=== PATIENT | male | born 1945 | race Asian ===

== ENCOUNTER 2019-04-20 19:47 | Inpatient (IN) | payer MEDICARE, MEDICAID ==
[~2019-04-20] VITALS: Ht 157.5 cm; Wt 48.4 kg
[2019-04-20] MEDS ORDERED: ADV100 IH (20:16)
[2019-04-20] MEDS ORDERED: ALBU8HFA IH (20:16)
[2019-04-20] MEDS ORDERED: 0.9% SODIUM CHLORIDE 5 ML NEB SOLUTION NEB ONE ×3 (20:29→23:40)
[2019-04-20] MEDS ORDERED: IPRATROPIUM BROMIDE 0.5 MG/2.5 ML NEB SOLUTION NEB ONE ×3 (20:30→23:30)
[2019-04-20] MEDS ORDERED: LEVALBUTEROL HCL 1.25 MG/0.5 ML NEB SOLUTION NEB ONE (20:30)
[2019-04-20] MEDS ORDERED: ACETAMINOPHEN 325 MG TABLET PO ONE (20:30)
[2019-04-20 20:40] LABS: BASOPHILS % (AUTO) 0.6 % (0.0-2.0); EOSINOPHILS % (AUTO) 3.3 % (1.0-6.0); HEMATOCRIT 39.3 % (41-53); HEMOGLOBIN 13.4 g/dL (13.5-17.5); LYMPHOCYTES # (AUTO) 3.1 K/uL (1.0-4.8); LYMPHOCYTES % (AUTO) 20.2 % (22.0-44.0); MEAN CORPUSCULAR HEMOGLOBIN 30.5 pg (26.0-34.0); MEAN CORPUSCULAR HGB CONC 33.9 G/dL (31.0-37.0); MEAN CORPUSCULAR VOLUME 90 fL (80-100); MONOCYTES # (AUTO) 1.6 K/uL (0.1-1.0); MONOCYTES % (AUTO) 10.5 % (2.0-9.0); NEUTROPHILS % (AUTO) 65.4 % (40.0-70.0); PLATELET COUNT (AUTO) 254 K/uL (150-450); RED BLOOD CELL COUNT(AUTO) 4.38 MIL/uL (4.50-5.90); RED CELL DISTRIBUTION WIDTH 13.7 % (11.5-14.5)
[2019-04-20 20:51] LABS: ANION GAP 9 mmol/L (8-16); CALCIUM, TOTAL 8.3 mg/dL (8.8-10.5); CARBON DIOXIDE 30 mmol/L (22-29); CHLORIDE 106 mmol/L (98-107); CREATININE 1.11 mg/dL (0.60-1.30); GLUCOSE,RANDOM 156 mg/dL (70-110); POTASSIUM 3.4 mmol/L (3.5-5.1); SODIUM SERUM 145 mmol/L (136-145); UREA NITROGEN, BLOOD 22 mg/dL (7-18)
[2019-04-20 20:52] LABS: GLOMERULAR FILTR. RATE CALC > 60 mL/min (>60)
[2019-04-20 21:05] LABS: B-TYPE NATRIURETIC PEPTIDE 108 pg/mL (0-100)
[2019-04-20 21:15] LABS: ALANINE AMINOTRANSFERASE 34 U/L (12-78); ALKALINE PHOSPHATASE 129 U/L (46-116); ASPARTATE AMINOTRANSFERASE 26 U/L (15-37); BILIRUBIN,TOTAL 0.3 mg/dL (0.1-1.0); CREATINE KINASE, TOTAL ONLY 230 U/L (39-308); TOTAL PROTEIN, SERUM 7.7 g/dL (6.4-8.2)
[2019-04-20] MEDS ORDERED: MethylPREDNISolone SOD SUCC 125 MG/2 ML VIAL IVP ONE (21:15)
[2019-04-20] MEDS ORDERED: AZITHROMYCIN 500 MG/NS 250 ML IV ONE ×2 (21:15→21:16)
[2019-04-20] MEDS ORDERED: CefTRIAXone 1 GM/DEXTROSE 50 ML IV ONE ×2 (21:15→21:16)
[2019-04-20] MEDS ORDERED: MethylPREDNISolone SOD SUCC 125 MG/2 ML VIAL ONE (21:16)
[2019-04-20 21:19] LABS: INFLUENZA TYPE A NEGATIVE FOR TYPE A (NEGATIVE); INFLUENZA TYPE B NEGATIVE FOR TYPE B (NEGATIVE)
[2019-04-20 21:26] LABS: LACTIC ACID 2.4 mmol/L (0.4-2.0)
[2019-04-20] MEDS ORDERED: SODIUM CHLORIDE 0.9% 1,000 ML IV ONE (21:45)
[2019-04-20] MEDS ORDERED: SODIUM CHLORIDE 0.9% 500 ML IV ONE (22:00)
[2019-04-20] MEDS ORDERED: DOXYCYCLINE HYCLATE 100 MG in DEXTROSE 5%-WATER 100 ML IV ONE (22:00)
[2019-04-20] MEDS ORDERED: ALBUTEROL SULFATE 5 MG/ML 20 ML NEB SOLN [BULK] NEB ONE ×2 (22:00→23:30)
[2019-04-20] MEDS ORDERED: SODIUM CHLORIDE 0.9% 20 ML ONE (23:08)
[2019-04-20] MEDS ORDERED: SUCCINYLCHOLINE CHLORIDE 20 MG/ML 10 ML VIAL ONE (23:09)
[2019-04-20] MEDS ORDERED: RAPID SEQUENCE KIT [RSI] 1 EACH KIT ONE (23:09)
[2019-04-20] MEDS ORDERED: KETAMINE HCL 50 MG/ML 10 ML VIAL IVP ONE (23:15)
[2019-04-20] MEDS ORDERED: MAGNESIUM SULFATE 2 GM/WATER 50 ML IV ONE (23:30)
[2019-04-20 23:33] LABS: HCO3,VENOUS BLOOD GAS 20.4 (21.0-28.0); PCO2,VENOUS BLOOD GAS 58 (40-45); SOURCE, BLOOD GAS VENOUS; TEMPERATURE, FAHRENHEIT, BG 100.7 FAHREN (96.0-98.6); TOTAL HEMOGLOBIN,VENOUS BGAS 12.6 (12.0-18.0)
[2019-04-20 23:36] LABS: SITE, BLOOD GAS RIGHT AC
[2019-04-20] MEDS ORDERED: EPINEPHrine 1:1,000 [1 MG/ML] AMP IM ONE (23:45)
[2019-04-20] MEDS ORDERED: VANCOMYCIN HCL 1 GM/D5% WATER 200 ML IV ONE (23:45)
[2019-04-21] VITALS (7 sets, daily range): BP systolic 98–132; BP diastolic 50–71
[2019-04-21] MEDS ORDERED: ACETAMINOPHEN 325 MG TABLET PO PRN ×2 (01:00→19:00)
[2019-04-21] MEDS ORDERED: 0.9% SODIUM CHLORIDE 10 ML SYRINGE IVP PRN (01:00)
[2019-04-21] MEDS ORDERED: SODIUM CHLORIDE 0.9% 500 ML IV ONE (01:00)
[2019-04-21 01:39] LABS: BASE EXCESS,VENOUS BLOOD GAS -6.3 (-3.3-1.2); PCO2,VENOUS BLOOD GAS 48 (40-45); PH,VENOUS BLOOD GAS 7.253 (7.360-7.410); SOURCE, BLOOD GAS VENOUS; TEMPERATURE, FAHRENHEIT, BG 98.1 FAHREN (96.0-98.6)
[2019-04-21 01:41] LABS: SITE, BLOOD GAS L FOREARM
[2019-04-21] MEDS ORDERED: PNEUMOCOCCAL VACCINE POLYVALENT 0.5 ML VIAL [PPSV23] IM ONE (06:00)
[2019-04-21] MEDS ORDERED: BISACODYL 10 MG RECTAL RECTAL SUPPOSITORY PR PRN (19:00)
[2019-04-21] MEDS ORDERED: ONDANSETRON HCL 4 MG/2 ML VIAL IVP PRN (19:00)
[2019-04-21] MEDS ORDERED: ZOLPIDEM TARTRATE 5 MG TABLET PO PRN (19:00)
[2019-04-21] MEDS ORDERED: MAGNESIUM HYDROXIDE SUSPENSION 30 ML UDCUP PO PRN (19:00)
[2019-04-21] MEDS: ALBUTEROL SULFATE 2.5 MG/0.5 ML NEB SOLUTION NEB SCH ×2 (19:00→22:02)
[2019-04-21] MEDS: IPRATROPIUM BROMIDE 0.5 MG/2.5 ML NEB SOLUTION NEB SCH ×2 (19:00→22:01)
[2019-04-21] MEDS ORDERED: ALBUTEROL SULFATE 2.5 MG/0.5 ML NEB SOLUTION NEB PRN (19:00)
[2019-04-21] MEDS ORDERED: IPRATROPIUM BROMIDE 0.5 MG/2.5 ML NEB SOLUTION NEB PRN (19:00)
[2019-04-21] MEDS ORDERED: MORPHINE SULFATE 2 MG/ML SYRINGE IVP PRN (19:00)
[2019-04-21] MEDS ORDERED: HYDROCODONE/ACETAMINOPHEN 5-325 MG TABLET PO PRN (19:00)
[2019-04-21] MEDS: DOCUSATE SODIUM 100 MG CAPSULE PO SCH (21:00)
[2019-04-21] MEDS ORDERED: SODIUM CHLORIDE 0.9% 250 ML IV ONE (21:00)
[2019-04-21] MEDS: CefTRIAXone SODIUM 2 GM in DEXTROSE 5%-WATER 50 ML IV SCH (21:19)
[2019-04-21] MEDS: AZITHROMYCIN 500 MG/NS 250 ML IV SCH (21:46)
[2019-04-21] MEDS: MethylPREDNISolone SOD SUCC 125 MG/2 ML VIAL IVP SCH (23:46)
[2019-04-22] VITALS (7 sets, daily range): BP systolic 125–146; BP diastolic 61–92
[2019-04-22] MEDS: IPRATROPIUM BROMIDE 0.5 MG/2.5 ML NEB SOLUTION NEB SCH ×6 (02:52→23:00)
[2019-04-22] MEDS: ALBUTEROL SULFATE 2.5 MG/0.5 ML NEB SOLUTION NEB SCH ×6 (02:52→23:00)
[2019-04-22] MEDS: MethylPREDNISolone SOD SUCC 125 MG/2 ML VIAL IVP SCH ×4 (06:00→20:36)
[2019-04-22] MEDS: HEPARIN SODIUM,PORCINE 5,000 UNITS/ML VIAL SQ SCH ×4 (08:00→23:20)
[2019-04-22] MEDS: DOCUSATE SODIUM 100 MG CAPSULE PO SCH ×2 (08:52→21:00)
[2019-04-22] MEDS: CefTRIAXone SODIUM 2 GM in DEXTROSE 5%-WATER 50 ML IV SCH (20:27)
[2019-04-22] MEDS: AZITHROMYCIN 500 MG/NS 250 ML IV SCH (21:00)
[2019-04-23 02:59] VITALS: BP 155/93
[2019-04-23] MEDS: IPRATROPIUM BROMIDE 0.5 MG/2.5 ML NEB SOLUTION NEB SCH ×6 (03:00→23:00)
[2019-04-23] MEDS: ALBUTEROL SULFATE 2.5 MG/0.5 ML NEB SOLUTION NEB SCH ×6 (03:00→23:00)
[2019-04-23] MEDS: MethylPREDNISolone SOD SUCC 125 MG/2 ML VIAL IVP SCH ×5 (06:00→23:08)
[2019-04-23 07:24] VITALS: BP 148/90
[2019-04-23] MEDS: HEPARIN SODIUM,PORCINE 5,000 UNITS/ML VIAL SQ SCH ×3 (08:00→23:08)
[2019-04-23] MEDS: DOCUSATE SODIUM 100 MG CAPSULE PO SCH ×2 (08:45→23:08)
[2019-04-23 09:06] LABS: BASOPHILS % (AUTO) 0.9 % (0.0-2.0); HEMOGLOBIN 13.2 g/dL (13.5-17.5); LYMPHOCYTES # (AUTO) 2.9 K/uL (1.0-4.8); LYMPHOCYTES % (AUTO) 32.7 % (22.0-44.0); MEAN CORPUSCULAR HEMOGLOBIN 30.5 pg (26.0-34.0); MEAN CORPUSCULAR HGB CONC 33.8 G/dL (31.0-37.0); MEAN CORPUSCULAR VOLUME 90 fL (80-100); MONOCYTES # (AUTO) 0.9 K/uL (0.1-1.0); MONOCYTES % (AUTO) 9.9 % (2.0-9.0); NEUTROPHILS # (AUTO) 4.5 K/uL (1.8-7.7); NEUTROPHILS % (AUTO) 50.5 % (40.0-70.0); PLATELET COUNT (AUTO) 266 K/uL (150-450); RED BLOOD CELL COUNT(AUTO) 4.33 MIL/uL (4.50-5.90); RED CELL DISTRIBUTION WIDTH 13.7 % (11.5-14.5)
[2019-04-23 09:22] LABS: ALANINE AMINOTRANSFERASE 55 U/L (12-78); ALBUMIN 3.2 g/dL (3.4-5.0); ALKALINE PHOSPHATASE 103 U/L (46-116); ANION GAP 6 mmol/L (8-16); ASPARTATE AMINOTRANSFERASE 41 U/L (15-37); BILIRUBIN,TOTAL 0.3 mg/dL (0.1-1.0); CALCIUM, TOTAL 8.6 mg/dL (8.8-10.5); CARBON DIOXIDE 32 mmol/L (22-29); CHLORIDE 107 mmol/L (98-107); CREATININE 1.01 mg/dL (0.60-1.30); GLOMERULAR FILTR. RATE CALC > 60 mL/min (>60); GLUCOSE,RANDOM 200 mg/dL (70-110); POTASSIUM 3.4 mmol/L (3.5-5.1); SODIUM SERUM 145 mmol/L (136-145); TOTAL PROTEIN, SERUM 6.9 g/dL (6.4-8.2); UREA NITROGEN, BLOOD 14 mg/dL (7-18)
[2019-04-23 11:25] VITALS: BP 140/84
[2019-04-23 15:15] VITALS: BP 152/94
[2019-04-23 19:34] VITALS: BP 146/79
[2019-04-23] MEDS: CefTRIAXone SODIUM 2 GM in DEXTROSE 5%-WATER 50 ML IV SCH (19:49)
[2019-04-23] MEDS: AZITHROMYCIN 500 MG/NS 250 ML IV SCH (20:08)
[2019-04-23 23:05] VITALS: BP 143/85
[2019-04-24] MEDS: IPRATROPIUM BROMIDE 0.5 MG/2.5 ML NEB SOLUTION NEB SCH ×4 (03:06→15:00)
[2019-04-24] MEDS: ALBUTEROL SULFATE 2.5 MG/0.5 ML NEB SOLUTION NEB SCH ×4 (03:06→15:00)
[2019-04-24 04:52] VITALS: BP 131/71
[2019-04-24] MEDS: MethylPREDNISolone SOD SUCC 125 MG/2 ML VIAL IVP SCH ×2 (05:59→12:37)
[2019-04-24] MEDS: HEPARIN SODIUM,PORCINE 5,000 UNITS/ML VIAL SQ SCH ×2 (08:41→16:00)
[2019-04-24] MEDS: DOCUSATE SODIUM 100 MG CAPSULE PO SCH (08:42)
[2019-04-24 11:49] VITALS: BP 137/70
[2019-04-24] MEDS ORDERED: PredniSONE 20 MG TABLET PO ONE (14:30)
[2019-04-24] MEDS ORDERED: POTASSIUM CHLORIDE 20 MEQ ER TABLET PO ONE (14:45)
[2019-04-24 15:40] VITALS: BP 142/70
== END 2019-04-24 17:00 | DRG 871 ==
LOC: EMS 19:48 → ICU 04-21 01:09 → 4E 04-21 18:45
PROVIDERS: ADMIT Hospitalist; ATTEND Hospitalist
PROC: 5A09357 Assistance with Respiratory Ventilation, Less than 24 Consecutive Hours, Continuous Positive Airway Pressure (ICD-10-PCS; principal; 2019-04-21)
PROC: 5A09357 Assistance with Respiratory Ventilation, Less than 24 Consecutive Hours, Continuous Positive Airway Pressure (ICD-10-PCS; 2019-04-21)
DX: A41.9 Sepsis, unspecified organism (principal); J96.90 Respiratory failure, unspecified, unspecified whether with hypoxia or hypercapnia; J18.9 Pneumonia, unspecified organism; J44.1 Chronic obstructive pulmonary disease with (acute) exacerbation; J44.0 Chronic obstructive pulmonary disease with (acute) lower respiratory infection; E87.6 Hypokalemia; F17.200 Nicotine dependence, unspecified, uncomplicated; R65.20 Severe sepsis without septic shock; Z59.0 Homelessness; Z28.21 Immunization not carried out because of patient refusal; Z79.899 Other long term (current) drug therapy
CPT/HCPCS: 82805; 83605; 87040; 87081; 87804; 93005; 94640; 94644; 94660; 96365; 96375; 99291; G0378; J0171; J0330; J0456; J0696; J1644; J2930; J3370; J3475; J3490; J7030; J7040; J7050; J7060

== ENCOUNTER 2019-05-07 14:59 | Inpatient (IN) | payer MEDICARE, MEDICAID ==
[~2019-05-07] VITALS: Ht 167.6 cm; Wt 45.5 kg
[~2019-05-07 14:59] MED LIST: ADV100 IH; ALBU8HFA IH
[2019-05-07] MEDS ORDERED: LEVO750T21 PO (15:32)
[2019-05-07] MEDS ORDERED: [UNRECOGNIZED DRUG - CODE] PO (15:32)
[2019-05-07] MEDS ORDERED: PRED20 PO (15:32)
[2019-05-07] MEDS ORDERED: 0.9% SODIUM CHLORIDE 10 ML SYRINGE IVP PRN ×2 (15:45→19:00)
[2019-05-07] MEDS ORDERED: SODIUM CHLORIDE 0.9% 1,000 ML IV ONE ×3 (15:45→21:00)
[2019-05-07 16:43] LABS: BASOPHILS % (AUTO) 0.4 % (0.0-2.0); EOSINOPHILS % (AUTO) 0 % (1.0-6.0); HEMATOCRIT 44.2 % (41-53); HEMOGLOBIN 14.7 g/dL (13.5-17.5); LYMPHOCYTES # (AUTO) 0.8 K/uL (1.0-4.8); LYMPHOCYTES % (AUTO) 3.8 % (22.0-44.0); MEAN CORPUSCULAR HEMOGLOBIN 30.4 pg (26.0-34.0); MEAN CORPUSCULAR HGB CONC 33.3 G/dL (31.0-37.0); MEAN CORPUSCULAR VOLUME 91 fL (80-100); MONOCYTES # (AUTO) 2.7 K/uL (0.1-1.0); MONOCYTES % (AUTO) 12.8 % (2.0-9.0); NEUTROPHILS # (AUTO) 17.3 K/uL (1.8-7.7); PLATELET COUNT (AUTO) 270 K/uL (150-450); RED BLOOD CELL COUNT(AUTO) 4.84 MIL/uL (4.50-5.90); RED CELL DISTRIBUTION WIDTH 14.4 % (11.5-14.5)
[2019-05-07 16:57] LABS: ANION GAP 7 mmol/L (8-16); CALCIUM, TOTAL 8.8 mg/dL (8.8-10.5); CARBON DIOXIDE 31 mmol/L (22-29); CHLORIDE 104 mmol/L (98-107); CREATININE 1.03 mg/dL (0.60-1.30); GLUCOSE,RANDOM 250 mg/dL (70-110); POTASSIUM 4.1 mmol/L (3.5-5.1); SODIUM SERUM 142 mmol/L (136-145); UREA NITROGEN, BLOOD 21 mg/dL (7-18)
[2019-05-07 16:59] LABS: GLOMERULAR FILTR. RATE CALC > 60 mL/min (>60); PROTHROMBIN TIME 10.3 SEC (9.4-11.6)
[2019-05-07 17:03] LABS: ALANINE AMINOTRANSFERASE 72 U/L (12-78); ALBUMIN 3.7 g/dL (3.4-5.0); ALKALINE PHOSPHATASE 129 U/L (46-116); ASPARTATE AMINOTRANSFERASE 63 U/L (15-37); BILIRUBIN,TOTAL 0.3 mg/dL (0.1-1.0); CREATINE KINASE, TOTAL ONLY 25 U/L (39-308); TOTAL PROTEIN, SERUM 7.4 g/dL (6.4-8.2)
[2019-05-07 17:04] LABS: AMMONIA 17 umol/L (11-32); LACTIC ACID 1.6 mmol/L (0.4-2.0)
[2019-05-07 17:05] LABS: TROPONIN I < 0.02 ng/mL (0.00-0.05)
[2019-05-07 17:06] LABS: B-TYPE NATRIURETIC PEPTIDE 92 pg/mL (0-100)
[2019-05-07 18:16] LABS: AMPHET/METH SCREEN,URINE NEGATIVE (NEGATIVE); BARBITURATE SCREEN, URINE NEGATIVE (NEGATIVE); BENZODIAZEPINES SCREEN,URINE NEGATIVE (NEGATIVE); CANNABINOID SCREEN,URINE NEGATIVE (NEGATIVE); COCAINE SCREEN,URINE NEGATIVE (NEGATIVE); METHADONE SCREEN, URINE NEGATIVE (NEGATIVE); OPIATE SCREEN,URINE NEGATIVE (NEGATIVE)
[2019-05-07 18:17] LABS: PHENCYCLIDINE SCREEN,URINE NEGATIVE (NEGATIVE)
[2019-05-07 18:21] LABS: APPEARANCE,URINE CLEAR (CLEAR); BILIRUBIN,URINE NEGATIVE (NEGATIVE); GLUCOSE, URINE (UA) >=1000 mg/dL (NEGATIVE); KETONES,URINE NEGATIVE (NEGATIVE); LEUKOCYTE ESTERASE ,URINE NEGATIVE (NEGATIVE); NITRATE,URINE NEGATIVE (NEGATIVE); OCCULT BLOOD,URINE NEGATIVE (NEGATIVE); PH,URINE 6.5 (5.0-8.0); PROTEIN,URINE NEGATIVE (NEGATIVE)
[2019-05-07 18:29] LABS: INFLUENZA TYPE A NEGATIVE FOR TYPE A (NEGATIVE); INFLUENZA TYPE B NEGATIVE FOR TYPE B (NEGATIVE)
[2019-05-07] MEDS ORDERED: PIPERACILLIN/TAZO 3.375 GM/D5W 50 ML IV ONE (18:30)
[2019-05-07] MEDS ORDERED: LEVOFLOXACIN 500 MG/D5% WATER 100 ML IV ONE (18:30)
[2019-05-07 18:49] LABS: BACTERIA,URINE Few /HPF (None Seen); RBC,URINE None Seen /HPF (0-2); SQUAMOUS EPITHELIAL CELL,UR Rare /LPF (None Seen); WBC,URINE 0-2 /HPF (0-5)
[2019-05-07 18:50] LABS: AMORPHOUS SEDIMENT,UR Few /LPF (None Seen)
[2019-05-07] MEDS ORDERED: ACETAMINOPHEN 325 MG TABLET PO PRN ×2 (19:00→21:00)
[2019-05-07] MEDS ORDERED: ONDANSETRON HCL 4 MG/2 ML VIAL IVP PRN ×2 (19:00→21:00)
[2019-05-07] MEDS: GuaiFENesin SR 600 MG ER TABLET PO SCH (21:00)
[2019-05-07] MEDS ORDERED: BISACODYL 10 MG RECTAL RECTAL SUPPOSITORY PR PRN (21:00)
[2019-05-07] MEDS: DOCUSATE SODIUM 100 MG CAPSULE PO SCH (21:00)
[2019-05-07] MEDS ORDERED: MORPHINE SULFATE 2 MG/ML SYRINGE IVP PRN (21:00)
[2019-05-07] MEDS ORDERED: HYDROCODONE/ACETAMINOPHEN 5-325 MG TABLET PO PRN (21:00)
[2019-05-07] MEDS ORDERED: ZOLPIDEM TARTRATE 5 MG TABLET PO PRN (21:00)
[2019-05-07] MEDS ORDERED: *CLINICAL-LEVOFLOXACIN IVPB DOSING CLINICAL ONE (21:00)
[2019-05-07] MEDS ORDERED: MAGNESIUM HYDROXIDE SUSPENSION 30 ML UDCUP PO PRN (21:00)
[2019-05-07] MEDS ORDERED: CefTRIAXone 1 GM/DEXTROSE 50 ML IV SCH (21:00)
[2019-05-07] MEDS: BENZONATATE 100 MG CAPSULE PO SCH (21:00)
[2019-05-07 21:39] VITALS: BP 130/56
[2019-05-07 23:49] VITALS: BP 134/72
[2019-05-08] MEDS: MethylPREDNISolone SOD SUCC 125 MG/2 ML VIAL IVP SCH ×5 (00:22→23:09)
[2019-05-08] MEDS: HEPARIN SODIUM,PORCINE 5,000 UNITS/ML VIAL SQ SCH ×4 (00:22→23:09)
[2019-05-08] MEDS: ALBUTEROL SULFATE 2.5 MG/0.5 ML NEB SOLUTION NEB SCH ×4 (02:00→20:22)
[2019-05-08] MEDS: IPRATROPIUM BROMIDE 0.5 MG/2.5 ML NEB SOLUTION NEB SCH ×4 (02:00→20:22)
[2019-05-08 05:08] VITALS: BP 122/64
[2019-05-08 06:26] LABS: BASOPHILS % (AUTO) 0.5 % (0.0-2.0); EOSINOPHILS % (AUTO) 0 % (1.0-6.0); HEMATOCRIT 41.9 % (41-53); HEMOGLOBIN 13.7 g/dL (13.5-17.5); LYMPHOCYTES # (AUTO) 0.7 K/uL (1.0-4.8); LYMPHOCYTES % (AUTO) 5.2 % (22.0-44.0); MEAN CORPUSCULAR HEMOGLOBIN 30.1 pg (26.0-34.0); MEAN CORPUSCULAR HGB CONC 32.8 G/dL (31.0-37.0); MEAN CORPUSCULAR VOLUME 92 fL (80-100); MONOCYTES # (AUTO) 1.7 K/uL (0.1-1.0); MONOCYTES % (AUTO) 12.3 % (2.0-9.0); NEUTROPHILS # (AUTO) 11.3 K/uL (1.8-7.7); PLATELET COUNT (AUTO) 223 K/uL (150-450); RED BLOOD CELL COUNT(AUTO) 4.56 MIL/uL (4.50-5.90); RED CELL DISTRIBUTION WIDTH 14.5 % (11.5-14.5)
[2019-05-08 06:55] LABS: ALANINE AMINOTRANSFERASE 57 U/L (12-78); ALKALINE PHOSPHATASE 97 U/L (46-116); ANION GAP 9 mmol/L (8-16); ASPARTATE AMINOTRANSFERASE 56 U/L (15-37); BILIRUBIN,TOTAL 0.4 mg/dL (0.1-1.0); CALCIUM, TOTAL 7.6 mg/dL (8.8-10.5); CARBON DIOXIDE 28 mmol/L (22-29); CHLORIDE 108 mmol/L (98-107); CREATININE 1.14 mg/dL (0.60-1.30); GLUCOSE,RANDOM 209 mg/dL (70-110); POTASSIUM 3.9 mmol/L (3.5-5.1); SODIUM SERUM 145 mmol/L (136-145); TOTAL PROTEIN, SERUM 6.6 g/dL (6.4-8.2); UREA NITROGEN, BLOOD 15 mg/dL (7-18)
[2019-05-08 06:56] LABS: GLOMERULAR FILTR. RATE CALC > 60 mL/min (>60)
[2019-05-08] MEDS: DOCUSATE SODIUM 100 MG CAPSULE PO SCH ×2 (07:45→20:58)
[2019-05-08] MEDS: BENZONATATE 100 MG CAPSULE PO SCH ×3 (07:45→20:59)
[2019-05-08] MEDS: GuaiFENesin SR 600 MG ER TABLET PO SCH ×2 (07:45→20:58)
[2019-05-08] MEDS: PANTOPRAZOLE SODIUM 40 MG DR TABLET PO SCH (07:45)
[2019-05-08 08:06] VITALS: BP 119/63
[2019-05-08 11:12] VITALS: BP 116/83
[2019-05-08 15:22] LABS: ABG BASE EXCESS 2.3 mmol/L (-2.0-3.0); ABG CARBOXYHEMOGLOBIN 1.2 % (0.0-1.5); ABG HCO3 26.1 mmol/L (22.0-26.0); ABG METHEMOGLOBIN 0.3 % (0.0-1.5); ABG OXYGEN CONTENT 18.6 mL/dL (15.0-23.0); ABG OXYGEN SATURATION 91.9 % (95.0-98.0); ABG OXYHEMOGLOBIN 90.5 % (94.0-100.0); ABG PCO2 43 mmHg (35-45); ABG PH 7.417 (7.35-7.450); ABG TOTAL HEMOGLOBIN 14.6 G/dL (12.0-18.0); PO2, ARTERIAL BG 60.2 mmHg (75.0-83.0); SOURCE, BLOOD GAS ARTERIAL
[2019-05-08 15:25] LABS: O2 DEVICE,BLOOD GAS CANNULA (ROOM AIR); SITE, BLOOD GAS LFT RADIAL
[2019-05-08 16:04] VITALS: BP 129/62
[2019-05-08 16:09] LABS: PHOSPHORUS 2.8 mg/dL (2.5-4.9)
[2019-05-08] MEDS ORDERED: SODIUM CHLORIDE 0.9% 250 ML IV ONE (16:15)
[2019-05-08] MEDS: WATER IV SCH ×2 (16:17→23:10)
[2019-05-08] MEDS: DEXTROSE 5% IV SCH ×2 (16:17→23:10)
[2019-05-08] MEDS: ACYCLOVIR IV SCH ×2 (16:17→23:10)
[2019-05-08] MEDS: CefTRIAXone SODIUM 2 GM in DEXTROSE 5%-WATER 50 ML IV SCH (17:49)
[2019-05-08] MEDS ORDERED: LEVOFLOXACIN 250 MG/D5% WATER 50 ML IV SCH (18:00)
[2019-05-08] MEDS ORDERED: VANCOMYCIN HCL 1 GM/D5% WATER 200 ML IV ONE (18:00)
[2019-05-08] MEDS ORDERED: VANCOMYCIN HCL 1.5 GM in DEXTROSE 5%-WATER 250 ML IV ONE (18:00)
[2019-05-08 19:53] VITALS: BP 128/58
[2019-05-09 00:10] VITALS: BP 123/66
[2019-05-09] MEDS: IPRATROPIUM BROMIDE 0.5 MG/2.5 ML NEB SOLUTION NEB SCH ×4 (02:18→20:05)
[2019-05-09] MEDS: ALBUTEROL SULFATE 2.5 MG/0.5 ML NEB SOLUTION NEB SCH ×4 (02:18→20:05)
[2019-05-09] MEDS: CefTRIAXone SODIUM 2 GM in DEXTROSE 5%-WATER 50 ML IV SCH ×2 (05:26→18:17)
[2019-05-09] MEDS: MethylPREDNISolone SOD SUCC 125 MG/2 ML VIAL IVP SCH (05:26)
[2019-05-09 05:48] VITALS: BP 124/66
[2019-05-09 06:29] LABS: ANION GAP 7 mmol/L (8-16); CALCIUM, TOTAL 7.9 mg/dL (8.8-10.5); CARBON DIOXIDE 31 mmol/L (22-29); CHLORIDE 108 mmol/L (98-107); CREATININE 1.17 mg/dL (0.60-1.30); GLUCOSE,RANDOM 252 mg/dL (70-110); POTASSIUM 3.6 mmol/L (3.5-5.1); SODIUM SERUM 146 mmol/L (136-145); UREA NITROGEN, BLOOD 14 mg/dL (7-18)
[2019-05-09 06:32] LABS: GLOMERULAR FILTR. RATE CALC > 60 mL/min (>60)
[2019-05-09 07:43] VITALS: BP 132/78
[2019-05-09] MEDS: ACYCLOVIR IV SCH ×2 (08:41→16:23)
[2019-05-09] MEDS: WATER IV SCH ×2 (08:41→16:23)
[2019-05-09] MEDS: DEXTROSE 5% IV SCH ×2 (08:41→16:23)
[2019-05-09] MEDS: GuaiFENesin SR 600 MG ER TABLET PO SCH ×2 (08:45→21:00)
[2019-05-09] MEDS: DOCUSATE SODIUM 100 MG CAPSULE PO SCH ×2 (08:45→21:00)
[2019-05-09] MEDS: PANTOPRAZOLE SODIUM 40 MG DR TABLET PO SCH (08:45)
[2019-05-09] MEDS: BENZONATATE 100 MG CAPSULE PO SCH ×3 (08:46→21:00)
[2019-05-09] MEDS: VANCOMYCIN HCL 500 MG in DEXTROSE 5%-WATER 100 ML IV SCH ×2 (10:47→20:49)
[2019-05-09] MEDS: HEPARIN SODIUM,PORCINE 5,000 UNITS/ML VIAL SQ SCH ×2 (10:47→20:49)
[2019-05-09 11:04] VITALS: BP 132/68
[2019-05-09 16:12] LABS: GLUCOSE, CSF 135 mg/dL (50-80); TOTAL PROTEIN, CSF 41 mg/dL (15-45)
[2019-05-09 16:24] VITALS: BP 128/70
[2019-05-09 17:14] LABS: CSF TUBE NUMBER 1
[2019-05-09 17:15] LABS: COLOR,CSF PINK (COLORLESS)
[2019-05-09 17:16] LABS: LYMPHOCYTES1,CSF 15 %; MONOCYTES1,CSF 0 %; NEUTROPHILS1,CSF 85 %
[2019-05-09 17:18] LABS: APPEARANCE,CSF CLOUDY (CLEAR)
[2019-05-09 17:20] LABS: APPEARANCE2,CSF CLEAR (CLEAR); COLOR2,CSF COLORLESS (COLORLESS); CSF 2ND TUBE NUMBER 4
[2019-05-09 17:21] LABS: LYMPHOCYTES2,CSF 5 %; MONOCYTES2,CSF 0 %; NEUTROPHILS2,CSF 90 %; OTHER CELLS,CSF 2ND 0
[2019-05-09 20:42] VITALS: BP 142/60
[2019-05-10] VITALS (7 sets, daily range): BP systolic 120–153; BP diastolic 65–80
[2019-05-10] MEDS: DEXTROSE 5% IV SCH ×4 (00:25→23:34)
[2019-05-10] MEDS: ACYCLOVIR IV SCH ×4 (00:25→23:34)
[2019-05-10] MEDS: WATER IV SCH ×4 (00:25→23:34)
[2019-05-10] MEDS: IPRATROPIUM BROMIDE 0.5 MG/2.5 ML NEB SOLUTION NEB SCH ×4 (02:26→20:09)
[2019-05-10] MEDS: ALBUTEROL SULFATE 2.5 MG/0.5 ML NEB SOLUTION NEB SCH ×4 (02:26→20:09)
[2019-05-10] MEDS: CefTRIAXone SODIUM 2 GM in DEXTROSE 5%-WATER 50 ML IV SCH (05:48)
[2019-05-10 06:51] LABS: BASOPHILS % (AUTO) 0.3 % (0.0-2.0); EOSINOPHILS % (AUTO) 0.1 % (1.0-6.0); HEMATOCRIT 37.4 % (41-53); HEMOGLOBIN 12.4 g/dL (13.5-17.5); LYMPHOCYTES # (AUTO) 1.2 K/uL (1.0-4.8); LYMPHOCYTES % (AUTO) 10.8 % (22.0-44.0); MEAN CORPUSCULAR HEMOGLOBIN 30.4 pg (26.0-34.0); MEAN CORPUSCULAR HGB CONC 33.1 G/dL (31.0-37.0); MEAN CORPUSCULAR VOLUME 92 fL (80-100); MONOCYTES # (AUTO) 1.5 K/uL (0.1-1.0); MONOCYTES % (AUTO) 13.4 % (2.0-9.0); NEUTROPHILS # (AUTO) 8.4 K/uL (1.8-7.7); NEUTROPHILS % (AUTO) 75.4 % (40.0-70.0); PLATELET COUNT (AUTO) 179 K/uL (150-450); RED BLOOD CELL COUNT(AUTO) 4.08 MIL/uL (4.50-5.90); RED CELL DISTRIBUTION WIDTH 13.9 % (11.5-14.5)
[2019-05-10 07:06] LABS: ANION GAP 8 mmol/L (8-16); CALCIUM, TOTAL 7.6 mg/dL (8.8-10.5); CARBON DIOXIDE 30 mmol/L (22-29); CHLORIDE 107 mmol/L (98-107); CREATININE 1.02 mg/dL (0.60-1.30); GLUCOSE,RANDOM 161 mg/dL (70-110); POTASSIUM 3.1 mmol/L (3.5-5.1); SODIUM SERUM 145 mmol/L (136-145); UREA NITROGEN, BLOOD 13 mg/dL (7-18); VANCOMYCIN,RANDOM 8.3 mcg/mL (25.0-50.0)
[2019-05-10 07:07] LABS: GLOMERULAR FILTR. RATE CALC > 60 mL/min (>60)
[2019-05-10] MEDS: VANCOMYCIN HCL 500 MG in DEXTROSE 5%-WATER 100 ML IV SCH (08:25)
[2019-05-10] MEDS: HEPARIN SODIUM,PORCINE 5,000 UNITS/ML VIAL SQ SCH ×2 (08:25→20:22)
[2019-05-10] MEDS ORDERED: SODIUM CHLORIDE 0.9% 1,000 ML ONE (08:31)
[2019-05-10] MEDS: BENZONATATE 100 MG CAPSULE PO SCH ×3 (08:39→23:25)
[2019-05-10] MEDS: GuaiFENesin SR 600 MG ER TABLET PO SCH ×2 (08:39→20:21)
[2019-05-10] MEDS: PANTOPRAZOLE SODIUM 40 MG DR TABLET PO SCH (08:39)
[2019-05-10] MEDS: DOCUSATE SODIUM 100 MG CAPSULE PO SCH ×2 (08:39→21:00)
[2019-05-10] MEDS ORDERED: POTASSIUM CHLORIDE 20 MEQ ER TABLET PO PRN (10:30)
[2019-05-10] MEDS: POTASSIUM CHL 10 MEQ/WATER 50 ML IV PRN ×3 (12:14→14:40)
[2019-05-10] MEDS ORDERED: VANCOMYCIN HCL 500 MG in DEXTROSE 5%-WATER 100 ML IV SCH (16:00)
[2019-05-10] MEDS: AMPICILLIN SODIUM/SULBACTAM NA 3 GM in SODIUM CHLORIDE 0.9% 100 ML IV SCH ×2 (18:21→23:25)
[2019-05-11] MEDS: ALBUTEROL SULFATE 2.5 MG/0.5 ML NEB SOLUTION NEB SCH ×5 (01:54→22:04)
[2019-05-11] MEDS: IPRATROPIUM BROMIDE 0.5 MG/2.5 ML NEB SOLUTION NEB SCH ×5 (01:54→22:04)
[2019-05-11 04:13] VITALS: BP 142/78
[2019-05-11] MEDS: AMPICILLIN SODIUM/SULBACTAM NA 3 GM in SODIUM CHLORIDE 0.9% 100 ML IV SCH ×3 (04:59→18:48)
[2019-05-11 07:25] VITALS: BP 133/81
[2019-05-11] MEDS: DOCUSATE SODIUM 100 MG CAPSULE PO SCH ×2 (08:35→21:03)
[2019-05-11] MEDS: HEPARIN SODIUM,PORCINE 5,000 UNITS/ML VIAL SQ SCH ×2 (08:35→21:00)
[2019-05-11] MEDS: PANTOPRAZOLE SODIUM 40 MG DR TABLET PO SCH (08:35)
[2019-05-11] MEDS: BENZONATATE 100 MG CAPSULE PO SCH ×3 (08:35→21:03)
[2019-05-11] MEDS: ACYCLOVIR IV SCH ×2 (08:38→17:13)
[2019-05-11] MEDS: WATER IV SCH ×2 (08:38→17:13)
[2019-05-11] MEDS: DEXTROSE 5% IV SCH ×2 (08:38→17:13)
[2019-05-11 08:41] LABS: ANION GAP 8 mmol/L (8-16); CALCIUM, TOTAL 8.1 mg/dL (8.8-10.5); CARBON DIOXIDE 29 mmol/L (22-29); CHLORIDE 105 mmol/L (98-107); CREATININE 0.76 mg/dL (0.60-1.30); GLUCOSE,RANDOM 171 mg/dL (70-110); POTASSIUM 3.3 mmol/L (3.5-5.1); SODIUM SERUM 142 mmol/L (136-145); UREA NITROGEN, BLOOD 9 mg/dL (7-18)
[2019-05-11] MEDS: GuaiFENesin SR 600 MG ER TABLET PO SCH ×2 (08:43→21:03)
[2019-05-11 08:44] LABS: GLOMERULAR FILTR. RATE CALC > 60 mL/min (>60)
[2019-05-11 10:52] VITALS: BP 118/76
[2019-05-11 16:09] VITALS: BP 145/85
[2019-05-11 19:55] VITALS: BP 125/71
[2019-05-11 23:28] VITALS: BP 129/74
[2019-05-12 04:24] VITALS: BP 127/75
[2019-05-12] MEDS: AMPICILLIN SODIUM/SULBACTAM NA 3 GM in SODIUM CHLORIDE 0.9% 100 ML IV SCH ×4 (06:00→12:00)
[2019-05-12 07:40] VITALS: BP 154/84
[2019-05-12] MEDS: GuaiFENesin SR 600 MG ER TABLET PO SCH ×2 (07:55→20:24)
[2019-05-12] MEDS: BENZONATATE 100 MG CAPSULE PO SCH ×3 (07:55→20:24)
[2019-05-12] MEDS: DOCUSATE SODIUM 100 MG CAPSULE PO SCH ×2 (07:56→20:24)
[2019-05-12] MEDS: PANTOPRAZOLE SODIUM 40 MG DR TABLET PO SCH (07:56)
[2019-05-12] MEDS: WATER IV SCH ×4 (08:00→16:00)
[2019-05-12] MEDS: ACYCLOVIR IV SCH ×4 (08:00→16:00)
[2019-05-12] MEDS: DEXTROSE 5% IV SCH ×4 (08:00→16:00)
[2019-05-12] MEDS: HEPARIN SODIUM,PORCINE 5,000 UNITS/ML VIAL SQ SCH ×2 (08:38→21:00)
[2019-05-12] MEDS: IPRATROPIUM BROMIDE 0.5 MG/2.5 ML NEB SOLUTION NEB SCH ×3 (08:53→20:00)
[2019-05-12] MEDS: ALBUTEROL SULFATE 2.5 MG/0.5 ML NEB SOLUTION NEB SCH ×3 (08:53→20:00)
[2019-05-12 11:45] VITALS: BP 122/71
[2019-05-12 15:25] VITALS: BP 133/87
[2019-05-12 19:06] VITALS: BP 132/80
[2019-05-12] MEDS: AMOX TR/POT CLAV 875 MG/125 MG TABLET PO SCH (20:25)
[2019-05-12 23:07] VITALS: BP 137/85
[2019-05-13] MEDS: ALBUTEROL SULFATE 2.5 MG/0.5 ML NEB SOLUTION NEB SCH ×4 (02:00→20:45)
[2019-05-13] MEDS: IPRATROPIUM BROMIDE 0.5 MG/2.5 ML NEB SOLUTION NEB SCH ×5 (02:00→20:42)
[2019-05-13 06:05] VITALS: BP 115/73
[2019-05-13 07:18] VITALS: BP 127/77
[2019-05-13] MEDS: BENZONATATE 100 MG CAPSULE PO SCH ×3 (09:11→21:00)
[2019-05-13] MEDS: GuaiFENesin SR 600 MG ER TABLET PO SCH ×2 (09:11→21:00)
[2019-05-13] MEDS: DOCUSATE SODIUM 100 MG CAPSULE PO SCH ×2 (09:11→21:00)
[2019-05-13] MEDS: HEPARIN SODIUM,PORCINE 5,000 UNITS/ML VIAL SQ SCH ×2 (09:11→21:00)
[2019-05-13] MEDS: AMOX TR/POT CLAV 875 MG/125 MG TABLET PO SCH ×2 (09:11→21:00)
[2019-05-13] MEDS: PANTOPRAZOLE SODIUM 40 MG DR TABLET PO SCH (09:11)
[2019-05-13] MEDS: BUDESONIDE 0.5 MG/2 ML NEB SOLUTION NEB SCH ×2 (09:18→20:42)
[2019-05-13] MEDS: WATER IV SCH ×4 (09:27→16:02)
[2019-05-13] MEDS: DEXTROSE 5% IV SCH ×4 (09:27→16:02)
[2019-05-13] MEDS: ACYCLOVIR IV SCH ×4 (09:27→16:02)
[2019-05-13 11:09] LABS: ANION GAP 6 mmol/L (8-16); CARBON DIOXIDE 31 mmol/L (22-29); CHLORIDE 103 mmol/L (98-107); GLUCOSE,RANDOM 224 mg/dL (70-110); POTASSIUM 3.6 mmol/L (3.5-5.1); SODIUM SERUM 140 mmol/L (136-145)
[2019-05-13 11:10] LABS: CALCIUM, TOTAL 8.6 mg/dL (8.8-10.5); UREA NITROGEN, BLOOD 10 mg/dL (7-18)
[2019-05-13 11:13] VITALS: BP 117/71
[2019-05-13 11:13] LABS: GLOMERULAR FILTR. RATE CALC > 60 mL/min (>60)
[2019-05-13 15:38] VITALS: BP 117/69
[2019-05-13] MEDS: IPRATROPIUM BROMIDE 0.5 MG/2.5 ML NEB SOLUTION NEB PRN (16:22)
[2019-05-13] MEDS: ALBUTEROL SULFATE 2.5 MG/0.5 ML NEB SOLUTION NEB PRN (16:22)
[2019-05-13 20:05] VITALS: BP 151/81
[2019-05-14 00:18] VITALS: BP 146/86
[2019-05-14] MEDS: WATER IV SCH ×2 (01:13→12:05)
[2019-05-14] MEDS: ACYCLOVIR IV SCH ×2 (01:13→12:05)
[2019-05-14] MEDS: DEXTROSE 5% IV SCH ×2 (01:13→12:05)
[2019-05-14] MEDS: ALBUTEROL SULFATE 2.5 MG/0.5 ML NEB SOLUTION NEB SCH ×5 (02:00→20:00)
[2019-05-14] MEDS: IPRATROPIUM BROMIDE 0.5 MG/2.5 ML NEB SOLUTION NEB SCH ×5 (02:00→20:00)
[2019-05-14 05:08] VITALS: BP 128/68
[2019-05-14 07:32] VITALS: BP 147/87
[2019-05-14] MEDS: BUDESONIDE 0.5 MG/2 ML NEB SOLUTION NEB SCH ×3 (08:04→21:00)
[2019-05-14] MEDS: AMOX TR/POT CLAV 875 MG/125 MG TABLET PO SCH ×2 (09:00→21:00)
[2019-05-14] MEDS: HEPARIN SODIUM,PORCINE 5,000 UNITS/ML VIAL SQ SCH ×2 (09:00→21:00)
[2019-05-14] MEDS: BENZONATATE 100 MG CAPSULE PO SCH ×3 (09:00→21:00)
[2019-05-14] MEDS: DOCUSATE SODIUM 100 MG CAPSULE PO SCH ×2 (09:00→21:00)
[2019-05-14] MEDS: PANTOPRAZOLE SODIUM 40 MG DR TABLET PO SCH (09:00)
[2019-05-14] MEDS: GuaiFENesin SR 600 MG ER TABLET PO SCH ×2 (09:00→21:00)
[2019-05-14 11:09] VITALS: BP 124/79
[2019-05-14] MEDS ORDERED: HALOPERIDOL LACTATE 5 MG/ML VIAL IM PRN (14:45)
[2019-05-14 14:48] VITALS: BP 139/81
[2019-05-14] MEDS: ALBUTEROL SULFATE 2.5 MG/0.5 ML NEB SOLUTION NEB PRN (17:41)
[2019-05-14] MEDS: IPRATROPIUM BROMIDE 0.5 MG/2.5 ML NEB SOLUTION NEB PRN (17:41)
[2019-05-15 00:45] VITALS: BP 138/83
[2019-05-15] MEDS: IPRATROPIUM BROMIDE 0.5 MG/2.5 ML NEB SOLUTION NEB SCH ×3 (02:08→13:36)
[2019-05-15] MEDS: ALBUTEROL SULFATE 2.5 MG/0.5 ML NEB SOLUTION NEB SCH ×3 (02:08→13:36)
[2019-05-15 07:55] VITALS: BP 133/99
[2019-05-15] MEDS: BUDESONIDE 0.5 MG/2 ML NEB SOLUTION NEB SCH (08:03)
[2019-05-15] MEDS: DOCUSATE SODIUM 100 MG CAPSULE PO SCH (09:00)
[2019-05-15] MEDS: AMOX TR/POT CLAV 875 MG/125 MG TABLET PO SCH (09:00)
[2019-05-15] MEDS: BENZONATATE 100 MG CAPSULE PO SCH ×2 (09:00→16:00)
[2019-05-15] MEDS: HEPARIN SODIUM,PORCINE 5,000 UNITS/ML VIAL SQ SCH (09:00)
[2019-05-15] MEDS: GuaiFENesin SR 600 MG ER TABLET PO SCH (09:00)
[2019-05-15] MEDS: PANTOPRAZOLE SODIUM 40 MG DR TABLET PO SCH (09:00)
[2019-05-15 11:46] VITALS: BP 131/87
[2019-05-15] MEDS ORDERED: AMOX1TAB16 PO (14:13)
[2019-05-15] MEDS ORDERED: BENZ-51 PO (14:14)
[2019-05-15] MEDS ORDERED: BUDE0.5A3 NEB (14:15)
[2019-05-15] MEDS ORDERED: DOCU-275 PO (14:16)
[2019-05-15] MEDS ORDERED: GUAI600T35 PO (14:17)
[2019-05-15] MEDS ORDERED: HEPA500018 SQ (14:18)
[2019-05-15] MEDS ORDERED: PANT40TA25 PO (14:19)
[2019-05-15] MEDS ORDERED: IPRNEB IH (14:19)
[2019-05-15] MEDS ORDERED: ACET-3207 PO (14:21)
[2019-05-15] MEDS ORDERED: A20IH1 IH (14:23)
[2019-05-15] MEDS ORDERED: BISA10SU11 PR (14:24)
[2019-05-15] MEDS ORDERED: HALO5I IM (14:25)
[2019-05-15] MEDS ORDERED: HYDR-4061 PO (14:26)
[2019-05-15] MEDS ORDERED: MOM30 PO (14:27)
[2019-05-15 15:56] VITALS: BP 126/71
== END 2019-05-15 17:15 | DRG 871 ==
LOC: EMS 14:59 → 5S 19:15
PROVIDERS: ADMIT Internal Medicine; ATTEND Internal Medicine
PROC: 009U3ZX Drainage of Spinal Canal, Percutaneous Approach, Diagnostic (ICD-10-PCS; principal; 2019-05-09)
DX: A41.9 Sepsis, unspecified organism (principal); E43 Unspecified severe protein-calorie malnutrition; G92 Toxic encephalopathy; J69.0 Pneumonitis due to inhalation of food and vomit; J44.1 Chronic obstructive pulmonary disease with (acute) exacerbation; J98.11 Atelectasis; J44.0 Chronic obstructive pulmonary disease with (acute) lower respiratory infection; Z68.1 Body mass index [BMI] 19.9 or less, adult; E86.0 Dehydration; E11.65 Type 2 diabetes mellitus with hyperglycemia; F03.90 Unspecified dementia, unspecified severity, without behavioral disturbance, psychotic disturbance, mood disturbance, and anxiety; R65.20 Severe sepsis without septic shock; Z53.20 Procedure and treatment not carried out because of patient's decision for unspecified reasons; Z87.01 Personal history of pneumonia (recurrent); Z22.322 Carrier or suspected carrier of Methicillin resistant Staphylococcus aureus; Z59.0 Homelessness; Z87.891 Personal history of nicotine dependence; Z91.19 Patient's noncompliance with other medical treatment and regimen
CPT/HCPCS: 36600; 62270; 70450; 71250; 82805; 82945; 83605; 83735; 84100; 84132; 84145; 84157; 87040; 87070; 87081; 87205; 87529; 87804; 89051; 92610; 93005; 94640; 95816; 97162; G0378; J0133; J0295; J0696; J1644; J1956; J2543; J2930; J3370; J3480; J7030; J7050; J7060